=== PATIENT | female | born 1955 | race Caucasian/White ===

== ENCOUNTER 2024-04-30 19:23 | Emergency (ER) | payer MEDICARE, BC ==
[~2024-04-30] VITALS: Ht 154.9 cm; Wt 68.2 kg
[2024-04-30] MEDS ORDERED: TOPROL XL 25MG25 MG PO (19:47)
[2024-04-30] MEDS ORDERED: LEVOTHYROXINE25 MCG PO (19:48)
[2024-04-30] MEDS ORDERED: LOTENSIN40 M1 PO (19:48)
[2024-04-30] MEDS ORDERED: PROTONIX TR40 M1 PO (19:49)
[2024-04-30] MEDS ORDERED: NORVASC 5MG5 MG/TAB (19:49)
[2024-04-30] MEDS ORDERED: TRICOR145 M1 PO (19:50)
[2024-04-30] MEDS ORDERED: SEROQUEL50 MG PO (19:50)
[2024-04-30] MEDS ORDERED: LYRICA75 MG PO (19:50)
[2024-04-30] MEDS ORDERED: MIRALAX17 GM PO (19:51)
[2024-04-30] MEDS ORDERED: LIPITOR20 M2 (19:52)
[2024-04-30] MEDS ORDERED: Orphenadrine 60 MG/2ML AMP IM ONE (20:15)
[2024-04-30] MEDS ORDERED: Ketorolac 30 MG/ML VIAL IM ONE (20:15)
[2024-04-30] MEDS ORDERED: Home Cyclobenzaprine 10 MG #2 TABS/PACK PO ONE (21:00)
[2024-04-30] MEDS ORDERED: Home Ketorolac 10 MG #4 TABS/PACK PO ONE (21:00)
[2024-04-30 21:17] VITALS: BP 126/64
== END 2024-04-30 21:17 | disposition home or self-care (01) ==
LOC: ED 19:23
DX: M25.522 Pain in left elbow (principal); W01.0XXA Fall on same level from slipping, tripping and stumbling without subsequent striking against object, initial encounter; Y93.89 Activity, other specified
CPT/HCPCS: J1885; J2360